=== PATIENT | female | born 1955 | race Caucasian/White ===

== ENCOUNTER → 2016-10-25 | Outpatient (CLI) | payer OTHER ==
--- NOTE | 2016-10-25 13:30 | MAM ---
EXAM DESCRIPTION: Diagnostic Mammo, right CLINICAL HISTORY: 61 yearsFemale6 MONTH FOLLOW UP COMPARISON: Right breast diagnostic digital mammography January 15 2016. Right breast targeted ultrasound January 15 2016. TECHNIQUE: Digital full field images of the right breast in the MLO, CC, and ML projections. CAD was utilized. FINDINGS: Again noted, in the ML and CC projections, is a region of focal asymmetry in the 10:00 position of the middle third of the right breast approximately 7 cm from the nipple. No skin thickening or nipple retraction. No microcalcifications. No significant change since the prior study. Not distinguishable in the MLO projection. No groups of suspicious microcalcifications or mass density in the right breast. IMPRESSION: BI-RADS CATEGORY: 3 PROBABLY BENIGN. Management: Short interval (6-month) follow-up or continued surveillance. The results and follow-up were discussed in person with the patient. Communication explaining the results and followup will be mailed to the patient and referring care provider. Electronically signed by: Sven Adrian MD 10/25/2016 1:29 PM CDT
== END | disposition home or self-care (01) ==
LOC: MAMMO 08:30
PROVIDERS: ATTEND Family Medicine
DX: N64.89 Other specified disorders of breast (principal)

== ENCOUNTER → 2017-04-20 | Outpatient (CLI) | payer SELFPAY ==
--- NOTE | 2017-04-21 16:37 | RAD ---
EXAM DESCRIPTION: Cervical Spine,3 Views CLINICAL HISTORY: 62 years Female, OSTEARTHRITIS COMPARISON: None. FINDINGS: Three views of the cervical spine demonstrate a tiny amount of curvature convex to the left significant osteopenia and moderate facet arthropathy and degenerative disc disease. No soft tissue swelling is seen and no malalignment on the lateral view is noted. The odontoid appears intact. IMPRESSION: Osteopenia and degenerative cervical spine without acute abnormality. Electronically signed by: Rey Tong MD 04/21/2017 4:36 PM [facility]
--- NOTE | 2017-04-21 16:39 | RAD ---
EXAM DESCRIPTION: Lumbar Spine 3 Views CLINICAL HISTORY: OSTEARTHRITIS COMPARISON: None Available. TECHNIQUE: AP/lateral/coned-down lateral/both obliques FINDINGS: Osteopenia and modest dextroscoliosis of the lumbar spine is present. Multilevel degenerative disc narrowing is present with predominant right sided sclerosis at L5-S1 and left-sided disc space narrowing at L2-3 and L3-4. This likely is accentuated by the patient's scoliosis. Vertebral collapse or compression deformity or malalignment is not apparent. IMPRESSION: Osteopenia and degenerative changes involving the facet joints and disc spaces with moderate dextroscoliosis. Electronically signed by: Rey Tong MD 04/21/2017 4:37 PM [employer]
--- NOTE | 2017-04-21 16:40 | RAD ---
EXAM DESCRIPTION: Thoracic Spine,AP Lateral CLINICAL HISTORY: 62 years Female, OSTEARTHRITIS COMPARISON: None. FINDINGS: The dorsal spine demonstrates a tiny amount of scoliotic curvature with mild degenerative changes. No compression deformity is seen. The aorta is calcified and tortuous. No paraspinous mass or destructive change noted. IMPRESSION: Minimal scoliosis and mild degenerative changes of the dorsal spine. Electronically signed by: Rey Tong MD 04/21/2017 4:38 PM [facility]
== END | disposition home or self-care (01) ==
LOC: LAB.O 09:25
DX: M19.90 Unspecified osteoarthritis, unspecified site (principal); I10 Essential (primary) hypertension

== ENCOUNTER → 2017-09-28 | Outpatient (CLI) | payer OTHER, SELFPAY ==
--- NOTE | 2017-09-29 16:32 | US ---
EXAM DESCRIPTION: Breast,Right: Ultrasound CLINICAL HISTORY: 62 yearsFemale6 MONTH FOLLOW UP COMPARISON: Digital diagnostic 3-D tomosynthesis bilateral mammography on this visit. Screening breast mammography 01/15/2016. TECHNIQUE: Transcutaneous scanning of the right breast utilizing two-dimensional and Doppler modes. Scanning performed by the councilor and Dr. Adrian. FINDINGS: Scanning right breast 900 clock position 6 cm from the nipple to the nipple. Heterogeneous fibroglandular and fatty echotexture. No distinct solid mass or cyst. No parenchymal edema or large calcifications. No abnormal Doppler vascularity. No overlying skin changes. IMPRESSION: 1. Bi-Rads Category 2: Benign. 2. Diagnostic bilateral 3-D tomosynthesis mammogram and report on this visit. The FINDINGS and the FOLLOW-UP plan were reviewed in person with the patient after the examination. Written communication explaining the IMPRESSION and FOLLOW-UP will be mailed to the patient and referring care provider. Electronically signed by: Sven Adrian MD 09/29/2017 4:31 PM [employer]
--- NOTE | 2017-09-30 15:15 | MAM ---
EXAM DESCRIPTION: 3D Diagnostic, Bilateral: Digital Mammography CLINICAL HISTORY: 62 yearsFemale6 MOS F/U . No family history breast cancer. Follow-up to examination October 2016.. COMPARISON: 2-D digital diagnostic right mammography 10/25/2016. Bilateral 2-D digital screening mammography January 02, 2016. Reports from prior examinations also reviewed. . TECHNIQUE: Bilateral CC LM MLO projection full-field images, 3-D tomosynthesis digital mammographic technique. Also bilateral synthesized CC MLO LM full-field images. CAD not utilized. FINDINGS: The breast parenchymal density pattern is: Scattered areas of fibroglandular density. No skin thickening or nipple retraction bilateral minimal solitary microcalcifications and bilateral vascular calcifications. Right axillary lymph nodes. Questionable focal asymmetry, but appears stable, in the lateral right breast in the middle third, 8 cm from the nipple. No focal, stellate mass or density, focal asymmetry , and no suspicious microcalcifications bilaterally. Stable mammograms compared to prior study, taking into account differences in mammographic technique Ultrasound: Scanning right breast 900 clock position 6 cm from the nipple to the nipple. Heterogeneous fibroglandular and fatty echotexture. No distinct solid mass or cyst. No parenchymal edema or large calcifications. No abnormal Doppler vascularity. No overlying skin changes. IMPRESSION: BI-RADS CATEGORY: 2 - BENIGN FINDINGS. FOLLOW UP: Return to routine digital bilateral screening, one year interval from September 2017. Written communication explaining the IMPRESSION and follow-up, will be mailed to the patient and referring health care provider. According to the [employer], yearly mammograms are recommended starting at age 40 and continuing as long as a woman is in good health. Any breast change noted on a breast self-exam should be reported promptly to the patient's healthcare provider. Breast MRI is recommended for women with an approximately 20-25% or greater lifetime risk of breast cancer, including women with a strong family history of breast or ovarian cancer and women who have been treated for Hodgkin's disease. A negative mammographic report should not delay tissue diagnosis in patients with significant clinical history or physical findings. Extremely dense breast tissue limits the sensitivity of digital mammography. Electronically signed by: Sven Adrian MD 09/30/2017 3:14 PM CDT
== END ==
LOC: MAMMO 11:30
PROVIDERS: ATTEND Family Medicine
DX: R92.8 Other abnormal and inconclusive findings on diagnostic imaging of breast (principal)
CPT/HCPCS: 76641; 77066; G0279

== ENCOUNTER → 2018-04-11 | Outpatient (CLI) | payer OTHER | LOC: LAB.O 10:23 | PROVIDERS: ATTEND Nurse Practitioner Family | DX: I10 Essential (primary) hypertension (principal); E78.2 Mixed hyperlipidemia ==

== ENCOUNTER → 2018-07-27 | Outpatient (CLI) | payer OTHER | LOC: LAB.O 10:22 | PROVIDERS: ATTEND Nurse Practitioner Family | DX: E78.2 Mixed hyperlipidemia (principal) ==

== ENCOUNTER 2019-05-24 12:36 | Emergency (ER) | payer MEDICARE, OTHER ==
[2019-05-24] MEDS ORDERED: predniSONE 20 MG TAB PO ONE (13:00)
[2019-05-24] MEDS ORDERED: IBUPROFEN 200 MG TAB PO ONE (13:00)
[2019-05-24 13:01] VITALS: TEMP 98.1; O2SAT 96
--- NOTE | 2019-05-24 14:01 | ED.PDOC ---
History of Present Illness - General Chief Complaint: General Stated Complaint: bilateral arm pain Time Seen by Provider: 05/24/19 12:44 Source: patient Exam Limitations: no limitations - History of Present Illness Initial Comments: the patient is a 64 year old femal presenting with symptoms of bilateral biceps tendonitis and a sore throat for the last week. low grade fever. mild cough. no pain elsewhere. no sob. no nvd. no trauma. Timing/Duration: 1 week Severity: moderate Improving Factors: nothing Worsening Factors: movement Associated Symptoms: fever/chills, malaise Allergies/Adverse Reactions: Allergies IV dye Allergy (Uncoded 05/27/12 07:27) Home Medications: Ambulatory Orders Cyclobenzaprine HCl [Flexeril] 5 mg PO TID PRN #30 tab 05/24/19 predniSONE [Prednisone] 20 mg PO DAILY #5 tab 05/24/19 Review of Systems - Review of Systems Constitutional: States: fever, malaise EENTM: States: throat pain Respiratory: States: cough Cardiology: States: no symptoms reported Gastrointestinal/Abdominal: States: no symptoms reported Genitourinary: States: no symptoms reported Musculoskeletal: States: see HPI Skin: States: no symptoms reported Neurological: States: no symptoms reported Endocrine: States: no symptoms reported All other Systems: No Change from Baseline Past Medical History (General) - Patient Medical History Hx Seizures: No Hx Stroke: Yes Hx Asthma: No Hx of COPD: No Hx Cardiac Disorders: No Hx Hypertension: Yes Hx Diabetes: No Hx Renal Disease: No Surgical History: other - Social History Hx Tobacco Use: No Family Medical History - Family History Mother Family History: Unknown Physical Exam - Physical Exam General Appearance: Alert, No apparent distress Eye Exam: bilateral normal Ears, Nose, Throat: hearing grossly normal, nasal congestion, pharyngeal eryth jhon Neck: full range of motion, supple Respiratory: lungs clear, normal breath sounds Cardiovascular/Chest: normal peripheral pulses, regular rate, rhythm, no edema Peripheral Pulses: radial,right: 2+, radial,left: 2+ Gastrointestinal/Abdominal: non tender, soft Rectal Exam: deferred Back Exam: no CVA tenderness, no vertebral tenderness Extremity: no pedal edema, no calf tenderness, normal capillary refill, other - bilateral bicpes ttp. full strength. nvi distally. no mass. Neurologic: alert, normal mood/affect, oriented x 3 Skin Exam: normal color Comments: Vital Signs - 24 hr 05/24/19 05/24/19 12:58 13:33 Temperature 98.1 F Pulse Rate [ 84 90 left brachial] Respiratory 20 16 Rate Blood Pressure 113/86 124/76 [left brachial] O2 Sat by Pulse 96 96 Oximetry Progress - Progress Progress: 05/24/19 14:04 patient has a viral uri. tested negative for flu. bilateral biceps tendonitis. will write for a few days of prednisone adn flexeril. topical heat. stretches. follow up with pcp early next week. motrin should help with both. er warnings. anniesteven castañeda [phone] - Results/Orders Results/Orders: rapid flu is negative. Departure - Departure Clinical Impression: Viral URI, Biceps tendonitis of both shoulders Disposition: Discharge to Home or Self Care Condition: Fair Departure Forms: ED Discharge - Pt. Copy, Patient Portal Self Enrollment Instructions: Tendinopathy, Viral Upper Respiratory Infection, Adult (DC) Diet: regular diet Activity: increase activity as tolerated Referrals: Nory Wilson NP [Primary Care Provider] - 1-2 Weeks Prescriptions: Cyclobenzaprine HCl [Flexeril] 5 mg PO TID PRN #30 tab PRN Reason: Muscle Spasms predniSONE [Prednisone] 20 mg PO DAILY #5 tab Home Medications: Ambulatory Orders Cyclobenzaprine HCl [Flexeril] 5 mg PO TID PRN #30 tab 05/24/19 predniSONE [Prednisone] 20 mg PO DAILY #5 tab 05/24/19 Additional Instructions: patient has a viral uri. tested negative for flu. bilateral biceps tendonitis. will write for a few days of prednisone adn flexeril. topical heat. stretches. follow up with pcp early next week. motrin should help with both. er warnings.
[2019-05-24] MEDS ORDERED: PENICILLIN BENZATHINE 1.2 MU 1.2 MU/2 ML SYG IM ONE (14:08)
[2019-05-24 14:23] VITALS: BP 104/75
== END 2019-05-24 14:25 | disposition home or self-care (01) ==
LOC: ER 12:36
DX: J06.9 Acute upper respiratory infection, unspecified (principal); M75.22 Bicipital tendinitis, left shoulder; M75.21 Bicipital tendinitis, right shoulder; I10 Essential (primary) hypertension; Z86.73 Personal history of transient ischemic attack (TIA), and cerebral infarction without residual deficits
CPT/HCPCS: 87502; J0561; J7512

== ENCOUNTER → 2019-12-24 | Outpatient (CLI) | payer MEDICARE, MEDICAID | LOC: YCFC.O 09:34 | PROVIDERS: ATTEND Family Medicine | DX: M25.519 Pain in unspecified shoulder (principal); E78.5 Hyperlipidemia, unspecified; R53.83 Other fatigue ==

== ENCOUNTER → 2019-12-27 | Outpatient (CLI) | payer MEDICARE, MEDICAID ==
--- NOTE | 2019-12-27 11:04 | MRI ---
Study: MRI of the Right Shoulder. Indication: SHOULDER PAIN Technique: Multiplanar, multi sequence MRI of the right shoulder was obtained without intravenous contrast. Comparison: None. Findings: Truncated distal clavicle which may be postsurgical or posttraumatic. Mild type II acromion. High-grade supraspinatus and infraspinatus tendinosis with irregular intermediate to high grade articular/interstitial tearing throughout both tendon insertions. No full-thickness tear defect or tendon retraction. Subscapularis tendinosis and attenuation. Teres minor tendon intact. Mild atrophy and grade 1 fatty infiltration rotator cuff musculature. Long head biceps tendinosis without tear. Circumferential truncation and degeneration. Severe glenohumeral joint osteoarthritis with complete grade 4 chondral loss, patchy cortical remodeling, and subchondral cystic change posteriorly. Slight posterior subluxation humeral head in relation to the glenoid by 13 mm. Small joint effusion. Thickening and edema inferior glenohumeral ligament which can be seen with adhesive capsulitis. Impression: High-grade supraspinatus and infraspinatus tendinosis with irregular intermediate to high grade articular/interstitial tearing throughout both tendon insertions. No full-thickness tear. Subscapularis tendinosis and attenuation. Mild atrophy and grade 1 fatty infiltration rotator cuff musculature. Long head biceps tendinosis. Circumferential labral truncation and degeneration. Severe glenohumeral joint osteoarthritis. Adhesive capsulitis. Truncated distal clavicle. Electronically signed by: Robi Rivera MD 12/27/2019 11:02 AM CDT
== END ==
LOC: MRI 07:00
PROVIDERS: ATTEND Family Medicine
DX: M75.101 Unspecified rotator cuff tear or rupture of right shoulder, not specified as traumatic (principal); M19.011 Primary osteoarthritis, right shoulder; M75.91 Shoulder lesion, unspecified, right shoulder; M75.01 Adhesive capsulitis of right shoulder; M62.511 Muscle wasting and atrophy, not elsewhere classified, right shoulder; R60.9 Edema, unspecified

== ENCOUNTER → 2019-12-28 | Outpatient (CLI) | payer MEDICARE, MEDICAID ==
--- NOTE | 2019-12-30 15:25 | MRI ---
EXAM DESCRIPTION: Lumbar Spine w/o Contrast : Magnetic Resonance Imaging. CLINICAL HISTORY: LOW BACK PAIN COMPARISON: Lumbar spine radiographs April 2017. TECHNIQUE: Multiplanar, multiple standard sequences, non contrast MRI, lumbar spine.. Limited due to motion on artifact and blurred images on some sequences. FINDINGS: L5-S1: The disc is well visualized on axial T2 series 501, image 3. Moderate disc space loss and moderate endplate reactive changes. Tiny posterior bulge. Hypertrophic facet arthrosis in ligament thickening (canal elements) mild canal narrowing. More on the right. Borderline right foraminal stenosis and mild left foraminal narrowing. L4-L5: Disc desiccation and minimal disc space loss. 3 mm grade 1 retrolisthesis. Posterior bulge with minimal inferior migration and bilateral narrowing of the subarticular recesses, more on the right. Hypertrophic changes in the canal elements more on the right. AP canal diameter 10 mm. Right posterior endplate spur and disc bulge abutting the exiting right L4 nerve root near stenosis of the foramen. Moderate to severe left foraminal narrowing. Bilateral L4 pars interarticularis deformities which could represent spondylolysis. L3-L4: Disc desiccation minimal disc space loss in the midline and to the left. Advanced endplate reactive changes. Disc endplate spur complex encroaching on the left foramen and abutting the left L3 nerve. Anterolisthesis 2 mm. Bilaterally shortened pedicles, hypertrophic changes in the canal elements, and marked narrowing of the transverse diameter of the canal with posterior epidural fat. AP canal diameter 7.5 mm. Mild narrowing right foramen. L2-L3: Disc desiccation with minimal disc space loss on the right and moderate disc space loss midline and left and also endplate reactive changes and Schmorl's nodes. Hypertrophic changes in the posterior elements. Epidural fat posterior to the canal, bilaterally shortened pedicles, and significant narrowing of the transverse diameter of the canal. AP canal diameter 11 mm. Posterior left and left lateral disc spur complex encroaching on the left subarticular recess and the left foramen with possible compromise of the left L2 and L3 nerves. L1-L2: Disc desiccation minimal disc space loss old Schmorl's node superior and inferior. Posterior disc osteophyte broad-based bulge. Also anterior bulge. Mild hypertrophic changes in the canal elements. Shortened pedicles and posterior epidural fat with AP canal diameter 8 mm. Bilateral mild to moderate foraminal narrowing. T12-L1: Disc desiccation in the midline and right of midline and moderate reactive changes midline and anterior to the right. 2 mm grade 1 anterolisthesis with minimal posterior disc bulge. Prolific changes in the canal elements with epidural fat and shortened pedicles. Mild canal narrowing. Mild bilateral foraminal narrowing. Conus terminates at this level. Moderate L2-L4 dextroscoliosis. Paravertebral soft tissues showing muscle atrophy.. Distal cord normal signal and caliber. Minimal marrow edema associated with several active Schmorl's nodes. Scattered hyperintense circumscribed T1 and T2 circumscribed hemangiomas. Heterogeneous marrow signal in the remaining vertebral bodies and the posterior elements. Vertebral bodies are not compressed at any level. IMPRESSION: 1. Multiple levels of hypertrophic posterior facet and ligaments and facet joint arthrosis. Multiple levels of disc degeneration and spondylosis. Mid lumbar dextroscoliosis. Multiple levels of spondylolisthesis. 2. Spondylosis at L5-S1 with borderline right foraminal stenosis. Correlate for right L5 radiculopathy. 3. Multifactorial borderline mild central canal stenosis L4-L5. Right posterior disc spur complex encroaching on the foramen and the right L4 nerve. Unilateral versus bilateral L4 pars spondylolysis. 4. Multifactorial moderate central canal stenosis L3-L4. Anterolisthesis. Disc endplate spur encroaching on the left foramen with possible compromise left L3 nerve. Correlate with clinical findings. 5. Possible compromise of left L2 and left L3 nerve, due to spur and disc-spur encroachment on the left subarticular recess and left foramen at L2-L3. 6. Multifactorial mild to moderate canal stenosis at L1-L2. Electronically signed by: Sven Adrian MD 12/30/2019 3:24 PM CDT
--- NOTE | 2019-12-31 14:29 | MAM ---
EXAM DESCRIPTION: 3D Screening BILATERAL : Digital Mammography. CLINICAL HISTORY: 64 years Female ANNUAL SCREENING . No complaints. Menarche age 11. Childbirth age 17. Premenopausal. No HRT. Lifetime risk of developing breast cancer (Tyrer-Cuzick model)(%): 4.6. COMPARISON: 2-D digital screening bilateral mammography December 2015. TECHNIQUE: Bilateral CC and MLO projection full-field images, digital tomosynthesis mammographic technique. Bilateral digital 2-D full-field MLO images. CAD available for 2-D images. FINDINGS: The breast parenchymal density pattern is: Scattered areas of fibroglandular density. No skin thickening or nipple retraction. Vascular calcifications. No new focal, stellate mass or density, focal asymmetry , and no suspicious microcalcifications . Stable mammograms compared to prior study. Taking into account, differences in mammographic technique. IMPRESSION: Benign exam. BIRAD CATEGORY: 2 BENIGN FINDINGS. RECOMMENDATIONS: FOLLOW UP: Routine digital bilateral mammographic screening, one year interval from December 2019. Written communication explaining the IMPRESSION and follow-up, will be mailed to the patient and referring health care provider. According to the [employer], yearly mammograms are recommended starting at age 40 and continuing as long as a woman is in good health. Any breast change noted on a breast self-exam should be reported promptly to the patient's healthcare provider. Breast MRI is recommended for women with an approximately 20-25% or greater lifetime risk of breast cancer, including women with a strong family history of breast or ovarian cancer and women who have been treated for Hodgkin's disease. A negative mammographic report should not delay tissue diagnosis in patients with significant clinical history or physical findings. Extremely dense breast tissue limits the sensitivity of digital mammography. Electronically signed by: Sven Adiran MD 12/31/2019 2:28 PM CDT
== END ==
LOC: MRI 10:46
PROVIDERS: ATTEND Family Medicine
DX: Z12.31 Encounter for screening mammogram for malignant neoplasm of breast (principal); M54.16 Radiculopathy, lumbar region; M46.96 Unspecified inflammatory spondylopathy, lumbar region; M47.896 Other spondylosis, lumbar region; M41.86 Other forms of scoliosis, lumbar region; M51.36 Other intervertebral disc degeneration, lumbar region; M47.897 Other spondylosis, lumbosacral region; M48.07 Spinal stenosis, lumbosacral region; M43.17 Spondylolisthesis, lumbosacral region; M25.78 Osteophyte, vertebrae; M24.28 Disorder of ligament, vertebrae; M48.062 Spinal stenosis, lumbar region with neurogenic claudication

== ENCOUNTER → 2020-01-08 | Outpatient (CLI) | payer MEDICARE, MEDICAID | LOC: YCFC.O 10:13 | PROVIDERS: ATTEND Family Medicine | DX: D64.9 Anemia, unspecified (principal); D72.819 Decreased white blood cell count, unspecified ==

== ENCOUNTER → 2020-02-26 | Outpatient (CLI) | payer MEDICARE, MEDICAID ==
--- NOTE | 2020-02-26 11:23 | MRI ---
EXAM DESCRIPTION: Shoulder,Left CLINICAL HISTORY: 65 years, Female, LEFT SHOULDER PAIN, limited range of motion. COMPARISON: None TECHNIQUE: MRI of the left shoulder was performed with multiplanar multi sequence imaging without intravenous contrast. FINDINGS: Rotator tendons: Supraspinatus tendon high-grade partial-thickness tear along the posterior myotendinous junction measuring up to 7 mm in AP dimension (series 801 image 10) involving up to 80 % tendon thickness. Additional low to intermediate grade partial-thickness bursal surface tears involving the anterior insertional fibers. Infraspinatus tendon low-grade partial thickness articular surface tears involving the insertional fibers. Mild subscapularis tendinosis without focal tear. The teres minor tendon is intact. Rotator muscles: Grade 1 fatty atrophy of the supraspinatus muscle belly. The remaining rotator cuff muscle bulk is intact. Glenoid labrum: Limited evaluation of the labrum demonstrates mild circumferential degenerative free edge tearing. Acromion: The acromion morphology is type II. Mild acromioclavicular joint osteoarthrosis with mild inferior projecting osteophytosis. Bone and joints: Moderate glenohumeral joint osteoarthrosis with patchy areas of full-thickness cartilage loss involving the inferior humeral head articular surface and inferior glenoid. Small subcortical cystic changes along the inferior glenoid rim. Small marginal osteophytosis at the inferior humeral head. No focal bone marrow contusion or fracture. Biceps tendon: Normal course and morphology of the biceps tendon long head within the bicipital groove. Mild fluid distention of the biceps tendon sheath suggestive of mild tenosynovitis. The biceps labral anchor appears intact. Soft tissues: No solid or cystic mass is seen. No focal muscle strain or edema. Mild to moderate subacromial/subdeltoid bursitis. IMPRESSION: 1. Supraspinatus tendon high-grade partial-thickness tear posteriorly and low to intermediate grade partial-thickness tears anteriorly. 2. Infraspinatus low-grade partial-thickness tears. Subscapularis tendinosis. 3. Mild acromioclavicular joint osteoarthrosis and type II acromion can be a cause for external impingement of the rotator cuff. 4. Mild to moderate subacromial/subdeltoid bursitis. 5. Mild biceps tenosynovitis. 6. Moderate glenohumeral joint osteoarthrosis with patchy areas of full-thickness cartilage loss. 7. Mild circumferential degenerative tearing of the glenoid labrum. Electronically signed by: Anthony Nunez DO 02/26/2020 11:22 AM CDT
== END ==
LOC: MRI 08:00
PROVIDERS: ATTEND Orthopaedic Surgery
DX: M75.52 Bursitis of left shoulder (principal); M75.102 Unspecified rotator cuff tear or rupture of left shoulder, not specified as traumatic; M19.012 Primary osteoarthritis, left shoulder; M65.812 Other synovitis and tenosynovitis, left shoulder; M75.82 Other shoulder lesions, left shoulder; S43.432A Superior glenoid labrum lesion of left shoulder, initial encounter

== ENCOUNTER → 2020-03-10 | Outpatient (CLI) | payer MEDICARE, MEDICAID | LOC: YCFC.O 09:43 | PROVIDERS: ATTEND Family Medicine | DX: E53.8 Deficiency of other specified B group vitamins (principal); D72.819 Decreased white blood cell count, unspecified; M51.9 Unspecified thoracic, thoracolumbar and lumbosacral intervertebral disc disorder ==

== ENCOUNTER → 2020-03-11 | Outpatient (CLI) | payer MEDICARE, MEDICAID ==
--- NOTE | 2020-03-11 21:06 | RAD ---
EXAM DESCRIPTION: Chest,2 Views CLINICAL HISTORY: ESSENTIAL HYPERTENSION COMPARISON: Previous chest x-ray May 27, 2012 TECHNIQUE: PA/lateral FINDINGS: There is no acute appearing cardiac or pulmonary abnormality. Heart size is normal with normal pulmonary vascularity. No pleural effusion or pneumothorax. Lungs are clear with no consolidating infiltrate. Lateral view shows intact sternum and spurring in the T-spine. IMPRESSION: No acute process is identified in the chest. Electronically signed by: Ashok Delaney MD 03/11/2020 9:04 PM CDT
== END ==
LOC: RAD 11:31
PROVIDERS: ATTEND Family Medicine
DX: I10 Essential (primary) hypertension (principal)

== ENCOUNTER → 2020-03-18 | Outpatient (CLI) | payer MEDICARE, MEDICAID | LOC: LAB.O 08:29 | PROVIDERS: ATTEND Orthopaedic Surgery | DX: Z01.818 Encounter for other preprocedural examination (principal) ==

== ENCOUNTER → 2020-04-16 | Outpatient (CLI) | payer MEDICARE, OTHER | LOC: YCFC.O 09:28 | PROVIDERS: ATTEND Family Medicine | DX: Z03.818 Encounter for observation for suspected exposure to other biological agents ruled out (principal); M79.606 Pain in leg, unspecified; D64.9 Anemia, unspecified ==

== ENCOUNTER → 2020-05-12 | Outpatient (CLI) | payer MEDICARE, OTHER | LOC: YCFC.O 08:54 | PROVIDERS: ATTEND Family Medicine | DX: Z01.818 Encounter for other preprocedural examination (principal) ==

== ENCOUNTER → 2020-06-17 | Outpatient (CLI) | payer OTHER | LOC: YCFC.O 14:44 → MERGE 14:44 | PROVIDERS: ATTEND Family Medicine | DX: Z03.818 Encounter for observation for suspected exposure to other biological agents ruled out (principal) ==